=== PATIENT | male | born 1980 | race Caucasian/White ===

== ENCOUNTER 2020-07-01 15:16 | Inpatient (IN) | payer OTHER ==
--- NOTE | 2020-07-01 15:59 | BHS.RME ---
Substance Use & Tx History - Substance Use History Heroin Substance amount: 6-8 bags Frequency of use: Daily Substance route: Injection (ex: intravenous or skin popping) Date of Last Use: 06/30/20 Nicotine Substance amount: one pack Frequency of use: Daily Substance route: Smoking Date of Last Use: 07/01/20 - Last Treatment Date of last treatment: December detox then [facility] rehab Where was last treatment: Rehab Physical/Psych/Mental Status - Behavior General Behavior: Increased activity (restlessness, agitation) Eye Contact: Normal - Cooperativeness Cooperativeness: Cooperative - Thinking Thought Processes: Tight Thought content: Future oriented - Physical Health Problems Is patient presently having any pain?: No Does patient presently have any injuries (include location): No Does patient currently have a fever: No COWS - Scale Resting Pulse: 1= [place] 81-100 Sweatin=Flushed/Facial Moisture Restless Observation: 3= Extraneous Movement Pupil Size: 0= Normal to Room Light Bone or Joint Aches: 1= Mild Discomfort Runny Nose/ Eye Tearin= Runny Nose/Eyes GI Upset > 30mins: 1= Stomach Cramp Tremor Observation: 0= None Yawning Observation: 1= 1-2x During Session Anxiety or Irritability: 1=Feels Anxious/Irritable Goose Flesh Skin: 0=Smooth Skin COWS Score: 12
--- NOTE | 2020-07-01 19:03 | HP ---
COWS - Scale Resting Pulse: 1= [place] 81-100 Sweatin=Flushed/Facial Moisture Restless Observation: 1= Difficult to Sit Still Pupil Size: 0= Normal to Room Light Bone or Joint Aches: 2= Severe Diffuse Aches Runny Nose/ Eye Tearin= Runny Nose/Eyes GI Upset > 30mins: 3= Vomiting/Diarrhea (vomiting x 1, diarrhea x 2) Tremor Observation: 2= Slight Tremor Visible Yawning Observation: 1= 1-2x During Session Anxiety or Irritability: 4=Extreme Anxiety Goose Flesh Skin: 0=Smooth Skin COWS Score: 18 CIWA Score - Admission Criteria OASAS Guidelines: Admission for Medically Managed Detox: Requires at least one of the followin. CIWA greater than 12 2. Seizures within the past 24 hours 3. Delirium tremens within the past 24 hours 4. Hallucinations within the past 24 hours 5. Acute intervention needed for co occurring medical disorder 6. Acute intervention needed for co occurring psychiatric disorder 7. Severe withdrawal that cannot be handled at a lower level of care (continued vomiting, continued diarrhea, abnormal vital signs) requiring intravenous medication and/or fluids 8. Admitting History and Physical - Smoking History Smoking history: Current every day smoker Have you smoked in the past 12 months: Yes Aproximately how many cigarettes per day: 20 - Alcohol/Substance Use Hx Alcohol Use: No Admission ROS [facility] Chief Complaint: Opioid withdrawal symptoms Allergies/Adverse Reactions: Allergies Allergy/AdvReac Type Severity Reaction Status Date / Time No Known Allergies Allergy Verified 07/01/20 21:18 History of Present Illness: 40 years old male with 7 years of heroin dependence is seeking admission to detox. His last admission was for the period 12/10/2019-12/14/2019 and he reorts that that he relapsed soon after after he was discharged from [facility]. He uses 6-8 bags intravenous daily. He reports medical history of GERD, psych. history of anxiety and denies suicidal ideation at this time. He is unemployed, lives with his family and denmies any pending legal issues. He reports that he overdosed yesterday and was treated in the ambulance by the EMS. Exam Limitations: No Limitations - Ebola screening Have you traveled outside of the country in the last 21 days: No Have you had contact with anyone from an Ebola affected area: No Have you been sick,other than usual withdrawal symptoms: No Do you have a fever: No - Review of Systems Constitutional: Chills, Loss of Appetite, Malaise, Night Sweats, Changes in sleep EENT: reports: No Symptoms Reported Respiratory: reports: No Symptoms reported Cardiac: reports: No Symptoms Reported GI: reports: Diarrhea (x 2), Poor Appetite, Poor Fluid Intake, Vomiting (x 1), Abdominal cramping : reports: No Symptoms Reported Musculoskeletal: reports: Joint Pain, Muscle Pain Integumentary: reports: Dryness, Flushing Neuro: reports: Headache, Tremors Endocrine: reports: No Symptoms Reported Hematology: reports: No Symptoms Reported Psychiatric: reports: Mood/Affect Appropiate, Orientated x3, Anxious Other Systems: Reviewed and Negative Patient History - Patient Medical History Hx Anemia: No Hx Asthma: No Hx Chronic Obstructive Pulmonary Disease (COPD): No Hx Cancer: No Hx Cardiac Disorders: No Hx Congestive Heart Failure: No Hx Hypertension: No Hx Hypercholesterolemia: No HX Cerebrovascular Accident: No Hx Seizures: No Hx Diabetes: No Hx Gastrointestinal Disorders: Yes (GERD) Hx Liver Disease: No Hx Genitourinary Disorders: No Hx Sexually Transmitted Disorders: No Hx Renal Disease (ESRD): No Hx Thyroid Disease: No Hx Human Immunodeficiency Virus (HIV): No (Negative 2020) Hx Hepatitis C: No Hx Depression: No Hx Suicide Attempt: No (Denies suicidal ideation at this time) Hx Bipolar Disorder: No Hx Schizophrenia: No - Patient Surgical History Past Surgical History: Yes Hx Orthopedic Surgery: Yes (Jaw surgery 15 years ago, tendon repair 2019) - PPD History Previous Implant?: Yes Documented Results: Negative w/proof Implanted On Prior [facility] Admission?: Yes Date: 12/12/19 PPD to be Administered?: No - Reproductive History Patient is a Female of Child Bearing Age (11 -55 yrs old): No (Male) - Smoking Cessation Smoking history: Current every day smoker Have you smoked in the past 12 months: Yes Aproximately how many cigarettes per day: 20 Hx Chewing Tobacco Use: No Initiated information on smoking cessation: Yes 'Breaking Loose' booklet given: 07/01/20 - Substance & Tx. History Hx Alcohol Use: No Hx Substance Use: Yes Substance Use Type: Heroin Hx Substance Use Treatment: Yes ([facility], [place], [place] ) - Substances abused Heroin Substance route: Oral Frequency: Daily Amount used: 6-8 bags Age of first use: 33 Date of last use: 07/01/20 Admission Physical Exam [facility] - Physical General Appearance: Yes: Moderate Distress, Tremorous, Anxious HEENTM: Yes: Within Normal Limits Respiratory: Yes: Lungs Clear, Normal Breath Sounds, No Respiratory Distress Neck: Yes: Within Normal Limits Breast: Yes: Breast Exam Deferred Cardiology: Yes: Regular Rate Abdominal: Yes: Normal Bowel Sounds Genitourinary: Yes: Within Normal Limits Back: Yes: Normal Inspection Musculoskeletal: Yes: Within Normal Limits Extremities: Yes: Tremors Integumentary: Yes: Within Normal Limits Lymphatic: Yes: Within Normal Limits - Diagnostic (1) GERD (gastroesophageal reflux disease) Current Visit: Yes Status: Chronic Qualifiers: Esophagitis presence: esophagitis presence not specified Qualified Code(s): K21.9 - Gastro-esophageal reflux disease without esophagitis (2) Anxiety Current Visit: Yes Status: Chronic (3) Nicotine dependence, unspecified, uncomplicated Current Visit: Yes Status: Chronic Qualifiers: Nicotine product type: cigarettes Qualified Code(s): F17.210 - Nicotine dependence, cigarettes, uncomplicated (4) Opioid dependence with withdrawal Current Visit: Yes Status: Acute Cleared for Admission [facility] - Detox or Rehab [facility] Level of Care: Medically Managed Detox Regimen/Protocol: Methadone Claeared for Rehab Admission: No Breathalyzer - Breathalyzer Breathalyzer: 0 Urine Drug Screen - Test Device Lot number: [id number] Expiration date: 01/08/22 - Control Is test valid?: Yes - Results Drug screen NEGATIVE: No Urine drug screen results: FEN-Fentanyl, MOP-Opiates Inpatient Rehab Admission - Rehab Decision to Admit Inpatient rehab admission?: No
[2020-07-01] MEDS ORDERED: NICOTINE POLACRILEX 2 MG GUM BUC PRN (19:24)
[2020-07-01] MEDS ORDERED: METHOCARBAMOL 500 MG TABLET PO PRN (19:24)
[2020-07-01] MEDS ORDERED: IBUPROFEN 400 MG TABLET (FP) PO PRN (19:24)
[2020-07-01] MEDS ORDERED: ACETAMINOPHEN 325 MG TABLET (FP) PO PRN ×2 (19:24)
[2020-07-01] MEDS ORDERED: cloNIDine HCL 0.1 MG TABLET PO PRN (19:24)
[2020-07-01] MEDS ORDERED: MAG HYDROX/AL HYDROX/SIMETH 30 ML UNIT-DOSE CUP PO PRN (19:24)
[2020-07-01] MEDS ORDERED: MAGNESIUM CITRATE 300 ML BOTTLE PO PRN (19:24)
[2020-07-01] MEDS ORDERED: MAGNESIUM HYDROX 2400MG/30ML ORAL SUSPENSION 30 ML CUP PO PRN (19:24)
[2020-07-01] MEDS ORDERED: METHADONE HCL 10 MG TABLET (FOR DETOX USE ONLY) PO ONE (19:24)
[2020-07-01] MEDS ORDERED: ONDANSETRON *ODT* 4 MG TABLET SL PRN (19:24)
[2020-07-01] MEDS ORDERED: MENTHOL/PHENOL 1 EACH UD MM PRN (19:24)
[2020-07-01] MEDS ORDERED: BISMUTH SUBSALICYLATE 524 MG/30 ML UD PO PRN (19:24)
[2020-07-01 21:33] VITALS: BMI 27.6
[2020-07-01] MEDS: MELATONIN 5 MG TABLETS PO SCH (22:22)
[2020-07-01] MEDS: THIAMINE HCL 100 MG TABLET (FP) PO SCH (22:22)
[2020-07-01] MEDS: hydrOXYzine PAMOATE 25 MG CAPSULE (FP) PO PRN (22:25)
[2020-07-02] MEDS ORDERED: METHADONE HCL 5 MG TABLET (FOR DETOX USE ONLY) ONE (09:20)
[2020-07-02] MEDS ORDERED: METHADONE HCL 10 MG TABLET (FOR DETOX USE ONLY) ONE (09:21)
[2020-07-02] MEDS ORDERED: METHADONE (DETOX) 20 MG, METHADONE (DETOX) 5 MG PO ONE (10:00)
--- NOTE | 2020-07-02 10:15 | CONSULT ---
[facility] Psychiatric Consult - Data Date of interview: 07/02/20 Admission source: Self-referred Identifying data: Mr Leone is a 40 years old male, unemployed receiving unemployment, living with family seeking detox treatment for opioid Substance Abuse History: Reports history of heroin use. Refer to addiction counselor's summary for further information Medical History: Significant for GERD, history of maxilo-facial surgery for fracture of mandible 15 years ago and orthosurgery for tendon repair left wrist in 2019. Smokes cigarettes 1 ppd Psychiatric History: Patient is known for one previous admission to this facility. He reports that his first psychiatric contact occured in December 2019 while admitted to inpatient rehab at [facility] in [place]. He said that he was diagnosed with Anxiety and Insomnia and prescribed Buspar 15 mg/tid and Seroquel 200 mg/hs. Reports he continues to be prescribed both medications as outpatient after discharge. He was first at [facility] and now at [facility] in [place]. Denies previous psychiatric hospitalization or suicidal attempt. At present, reports feeling anxious and sleeping poorly. Requests to continue taking both of his psychotropic medications Physical/Sexual Abuse/Trauma History: Denies history of abuse as a child or DV relationship as an adult Mental Status Exam - Mental Status Exam Alert and Oriented to: Time, Place, Person Cognitive Function: Fair Patient Appearance: Well Groomed Mood: Anxious Affect: Appropriate Patient Behavior: Cooperative Speech Pattern: Clear Voice Loudness: Normal Thought Process: Intact, Goal Oriented Thought Disorder: Not Present Hallucinations: Denies Suicidal Ideation: Denies Homicidal Ideation: Denies Insight/Judgement: Poor Sleep: Poorly Appetite: Fair Muscle strength/Tone: Normal Gait/Station: Normal Psychiatric Findings - Problem List ([place] 1, 2,3) (1) Anxiety disorder Current Visit: Yes Status: Chronic (2) Substance-induced anxiety disorder Current Visit: Yes Status: Acute (3) Substance-induced sleep disorder Current Visit: Yes Status: Acute (4) Opioid dependence with withdrawal Current Visit: Yes Status: Acute (5) Cannabis dependence, uncomplicated Current Visit: No Status: Acute (6) Nicotine dependence Current Visit: Yes Status: Chronic (7) GERD (gastroesophageal reflux disease) Current Visit: Yes Status: Acute - Initial Treatment Plan Initial Treatment Plan: 1) Continue Buspar 15 mg po TID and Seroquel 200 mg po HS. 2) Continue inpatient detoxification
[2020-07-02] MEDS: PRENATAL VITAMINS W/ FOLIC ACID TABLET (FP) PO SCH (10:18)
[2020-07-02] MEDS: NICOTINE 21 MG/24 HOURS TOPICAL PATCH TD SCH (10:18)
[2020-07-02 10:36] LABS: HEMATOCRIT 35.1 % (35.4-49); MCH 30.8 pg (25.7-33.7); MCHC 34.1 g/dl (32.0-35.9); MEAN CELL VOLUME 90.2 fl (80-96); MEAN PLT VOLUME 8.9 fl (7.5-11.1); PLATELET COUNT 221 K/MM3 (134-434); RBC 3.89 M/mm3 (4.00-5.60); RDW 13.2 % (11.9-15.9); WHITE BLOOD COUNT 5.5 K/mm3 (4.0-10.0)
[2020-07-02 10:46] LABS: ALBUMIN 3.3 g/dl (3.4-5.0); BILIRUBIN,TOTAL 0.6 mg/dL (0.2-1); BLOOD UREA NITROGEN 22.3 mg/dL (7-18); CALCIUM 8.8 mg/dL (8.5-10.1); CREATININE 0.8 mg/dL (0.55-1.3); POTASSIUM 3.9 mmol/L (3.5-5.1); TOT PROT 7.1 g/dl (6.4-8.2)
--- NOTE | 2020-07-02 11:55 | PN ---
BHS COWS - Scale Resting Pulse: 0= [place] 80 or Below Sweatin=Flushed/Facial Moisture Restless Observation: 1= Difficult to Sit Still Pupil Size: 0= Normal to Room Light Bone or Joint Aches: 2= Severe Diffuse Aches Runny Nose/ Eye Tearin= None GI Upset > 30mins: 0= None Tremor Observation of Outstretched Hands: 2= Slight Tremor Visible Yawning Observation: 1= 1-2x During Session Anxiety or Irritability: 2=Irritable/Anxious Goose Flesh Skin: 0=Smooth Skin COWS Score: 10 BHS Progress Note (SOAP) Subjective: sweats shakes headache interrupted sleep Objective: 07/02/20 11:54 Vital Signs Temperature 98.0 F 07/02/20 06:42 Pulse Rate 68 07/02/20 06:42 Respiratory Rate 16 07/02/20 06:42 Blood Pressure 114/80 07/02/20 06:42 O2 Sat by Pulse Oximetry (%) 96 07/02/20 06:42 Laboratory Tests 07/01/20 07/02/20 07/02/20 07:00 07:00 07:00 WBC 5.5 RBC 3.89 L Hgb 12.0 Hct 35.1 L MCV 90.2 MCH 30.8 MCHC 34.1 RDW 13.2 Plt Count 221 D MPV 8.9 Sodium 137 Potassium 3.9 Chloride 102 Carbon Dioxide 30 Anion Gap 5 L BUN 22.3 H Creatinine 0.8 Est GFR (CKD-EPI)AfAm 130.42 Est GFR (CKD-EPI)NonAf 112.53 Random Glucose 89 Calcium 8.8 Total Bilirubin 0.6 AST 26 ALT 39 Alkaline Phosphatase 68 Total Protein 7.1 Albumin 3.3 L Syphilis Serology Non-reactive labs noted aaox3 ambulating no acute distress Assessment: 07/02/20 11:55 withdrawals Plan: continue detox
[2020-07-02] MEDS: QUEtiapine FUMARATE 200 MG TABLET PO SCH (22:13)
[2020-07-02] MEDS: MELATONIN 5 MG TABLETS PO SCH (22:13)
[2020-07-02] MEDS: THIAMINE HCL 100 MG TABLET (FP) PO SCH (22:13)
[2020-07-03] MEDS: hydrOXYzine PAMOATE 25 MG CAPSULE (FP) PO PRN ×2 (05:18→22:04)
[2020-07-03] MEDS ORDERED: METHADONE HCL 10 MG TABLET (FOR DETOX USE ONLY) PO ONE (10:00)
[2020-07-03] MEDS: PRENATAL VITAMINS W/ FOLIC ACID TABLET (FP) PO SCH (10:08)
[2020-07-03] MEDS: NICOTINE 21 MG/24 HOURS TOPICAL PATCH TD SCH (10:08)
--- NOTE | 2020-07-03 10:38 | PN ---
BHS COWS - Scale Resting Pulse: 0= [place] 80 or Below Sweatin= Chills/Flushing Restless Observation: 1= Difficult to Sit Still Pupil Size: 0= Normal to Room Light Bone or Joint Aches: 1= Mild Discomfort Runny Nose/ Eye Tearin= None GI Upset > 30mins: 0= None Tremor Observation of Outstretched Hands: 1= Tremor [place], Not Seen Yawning Observation: 2= >3x During Session Anxiety or Irritability: 1=Feels Anxious/Irritable Goose Flesh Skin: 0=Smooth Skin COWS Score: 7 BHS Progress Note (SOAP) Subjective: sweats tried interrupted sleep body aches Objective: 07/03/20 10:36 Vital Signs Temperature 96.8 F L 07/03/20 08:54 Pulse Rate 65 07/03/20 08:54 Respiratory Rate 18 07/03/20 08:54 Blood Pressure 130/78 07/03/20 08:54 O2 Sat by Pulse Oximetry (%) 97 07/03/20 05:12 Laboratory Tests 07/01/20 07/02/20 07/02/20 07:00 07:00 07:00 WBC 5.5 RBC 3.89 L Hgb 12.0 Hct 35.1 L MCV 90.2 MCH 30.8 MCHC 34.1 RDW 13.2 Plt Count 221 D MPV 8.9 Sodium 137 Potassium 3.9 Chloride 102 Carbon Dioxide 30 Anion Gap 5 L BUN 22.3 H Creatinine 0.8 Est GFR (CKD-EPI)AfAm 130.42 Est GFR (CKD-EPI)NonAf 112.53 Random Glucose 89 Calcium 8.8 Total Bilirubin 0.6 AST 26 ALT 39 Alkaline Phosphatase 68 Total Protein 7.1 Albumin 3.3 L Syphilis Serology Non-reactive labs noted elevated BUN noted; encourage fluid intake will repeat labs aaox3 ambulating no acute distress Assessment: 07/03/20 10:37 withdrawals Plan: continue detox increase fluids repeat bmp
[2020-07-03] MEDS: QUEtiapine FUMARATE 200 MG TABLET PO SCH (22:04)
[2020-07-03] MEDS: THIAMINE HCL 100 MG TABLET (FP) PO SCH (22:04)
[2020-07-03] MEDS: MELATONIN 5 MG TABLETS PO SCH (22:05)
[2020-07-04] MEDS: hydrOXYzine PAMOATE 25 MG CAPSULE (FP) PO PRN (05:09)
[2020-07-04] MEDS: NICOTINE 21 MG/24 HOURS TOPICAL PATCH TD SCH (09:00)
[2020-07-04] MEDS ORDERED: METHADONE HCL 10 MG TABLET (FOR DETOX USE ONLY) PO ONE (09:00)
[2020-07-04] MEDS: PRENATAL VITAMINS W/ FOLIC ACID TABLET (FP) PO SCH (09:03)
--- NOTE | 2020-07-04 09:06 | DS ---
[facility] Detox Discharge Summary Admission Date: 07/01/20 Discharge Date: 07/04/20 - History Present History: Cannabis Dependence, Opioid Dependence, Sedative Dependence - Physical Exam Results Vital Signs: Vital Signs Temperature 97.3 F L 07/04/20 05:06 Pulse Rate 61 07/04/20 05:06 Respiratory Rate 16 07/04/20 05:06 Blood Pressure 130/82 07/04/20 05:06 O2 Sat by Pulse Oximetry (%) 97 07/04/20 05:06 Pertinent Admission Physical Exam Findings: Vital Signs Temperature 97.3 F L 07/04/20 05:06 Pulse Rate 61 07/04/20 05:06 Respiratory Rate 16 07/04/20 05:06 Blood Pressure 130/82 07/04/20 05:06 O2 Sat by Pulse Oximetry (%) 97 07/04/20 05:06 Laboratory Tests 07/01/20 07/01/20 07/02/20 07:00 21:40 07:00 WBC 5.5 RBC 3.89 L Hgb 12.0 Hct 35.1 L MCV 90.2 MCH 30.8 MCHC 34.1 RDW 13.2 Plt Count 221 D MPV 8.9 Sodium Potassium Chloride Carbon Dioxide Anion Gap BUN Creatinine Est GFR (CKD-EPI)AfAm Est GFR (CKD-EPI)NonAf Random Glucose Calcium Total Bilirubin AST ALT Alkaline Phosphatase Total Protein Albumin Syphilis Serology Non-reactive COVID-19 (FRANCES) Not detected 07/02/20 07:00 WBC RBC Hgb Hct MCV MCH MCHC RDW Plt Count MPV Sodium 137 Potassium 3.9 Chloride 102 Carbon Dioxide 30 Anion Gap 5 L BUN 22.3 H Creatinine 0.8 Est GFR (CKD-EPI)AfAm 130.42 Est GFR (CKD-EPI)NonAf 112.53 Random Glucose 89 Calcium 8.8 Total Bilirubin 0.6 AST 26 ALT 39 Alkaline Phosphatase 68 Total Protein 7.1 Albumin 3.3 L Syphilis Serology COVID-19 (FRANCES) aaox3 ambulating no acute distress lungs CTA - Treatment Hospital Course: Detox Protocol Followed, Detoxed Safely, Responded well, Discharged Condition Good, Rehab Referral Accepted - Medication Discharge Medications: Ambulatory Orders Buspirone HCl [Buspar -] 15 mg PO TID 07/01/20 Quetiapine Fumarate [Seroquel -] 200 mg PO HS 07/01/20 - Diagnosis (1) GERD (gastroesophageal reflux disease) Current Visit: Yes Status: Chronic Qualifiers: Esophagitis presence: without esophagitis Qualified Code(s): K21.9 - Gastro-esophageal reflux disease without esophagitis (2) Opioid dependence with withdrawal Current Visit: Yes Status: Acute (3) Substance-induced anxiety disorder Current Visit: Yes Status: Acute (4) Substance-induced sleep disorder Current Visit: Yes Status: Acute (5) Anxiety Current Visit: Yes Status: Chronic (6) Anxiety disorder Current Visit: Yes Status: Chronic (7) Nicotine dependence Current Visit: Yes Status: Chronic Qualifiers: Nicotine product type: cigarettes Substance use status: uncomplicated Qualified Code(s): F17.210 - Nicotine dependence, cigarettes, uncomplicated (8) Cannabis dependence, uncomplicated Current Visit: Yes Status: Chronic (9) Sedative, hypnotic or anxiolytic abuse, uncomplicated Current Visit: Yes Status: Chronic - AMA Did Patient Leave Against Medical Advice: No
[2020-07-04 09:22] VITALS: BP 141/84; PULSE 58; TEMP 97.8
[2020-07-04] MEDS ORDERED: METHADONE (DETOX) 10 MG, METHADONE (DETOX) 5 MG PO ONE (10:00)
[2020-07-04 10:33] LABS: BLOOD UREA NITROGEN 15.8 mg/dL (7-18); CALCIUM 9.1 mg/dL (8.5-10.1); CREATININE 0.8 mg/dL (0.55-1.3); POTASSIUM 4.2 mmol/L (3.5-5.1)
[2020-07-05] MEDS ORDERED: METHADONE HCL 10 MG TABLET (FOR DETOX USE ONLY) PO ONE (10:00)
[2020-07-06] MEDS ORDERED: METHADONE HCL 5 MG TABLET (FOR DETOX USE ONLY) PO ONE (06:00)
== END 2020-07-04 09:18 | disposition home or self-care (01) | DRG 773 ==
LOC: YASAS 15:16 → Y6N 21:05
PROVIDERS: ADMIT Allergy & Immunology; ATTEND Allergy & Immunology
PROC: HZ2ZZZZ Detoxification Services for Substance Abuse Treatment (ICD-10-PCS; principal; 2020-07-01)
DX: F11.23 Opioid dependence with withdrawal (principal); F13.20 Sedative, hypnotic or anxiolytic dependence, uncomplicated; F17.210 Nicotine dependence, cigarettes, uncomplicated; F19.280 Other psychoactive substance dependence with psychoactive substance-induced anxiety disorder; F19.282 Other psychoactive substance dependence with psychoactive substance-induced sleep disorder; F41.9 Anxiety disorder, unspecified; K21.9 Gastro-esophageal reflux disease without esophagitis; Z87.81 Personal history of (healed) traumatic fracture
CPT/HCPCS: 36415; 80048; 80053; 85027; 86780; U0003